=== PATIENT | female | born 1995 | race Two or more races ===

== ENCOUNTER 2021-05-23 13:16 | Outpatient (CLI) | payer OTHER | END 2021-05-23 14:38 | disposition home or self-care (01) | LOC: PRENATAL 13:16 | PROVIDERS: ATTEND Obstetrics & Gynecology Maternal & Fetal Medicine | DX: O36.80X0 Pregnancy with inconclusive fetal viability, not applicable or unspecified (principal); Z36.82 Encounter for antenatal screening for nuchal translucency; O99.210 Obesity complicating pregnancy, unspecified trimester; Z3A.12 12 weeks gestation of pregnancy ==

== ENCOUNTER 2021-07-24 12:54 | Outpatient (CLI) | payer OTHER | END 2021-07-24 14:37 | disposition home or self-care (01) | LOC: PRENATAL 12:54 | PROVIDERS: ATTEND Obstetrics & Gynecology Maternal & Fetal Medicine | DX: O35.3XX0 Maternal care for (suspected) damage to fetus from viral disease in mother, not applicable or unspecified (principal); O99.210 Obesity complicating pregnancy, unspecified trimester; Z3A.21 21 weeks gestation of pregnancy ==

== ENCOUNTER 2021-09-11 10:49 | Outpatient (CLI) | payer OTHER | END 2021-09-11 11:55 | disposition home or self-care (01) | LOC: PRENATAL 10:49 | PROVIDERS: ATTEND Obstetrics & Gynecology Maternal & Fetal Medicine | DX: O26.849 Uterine size-date discrepancy, unspecified trimester (principal); O99.210 Obesity complicating pregnancy, unspecified trimester; Z3A.28 28 weeks gestation of pregnancy ==

== ENCOUNTER 2021-10-16 18:02 | Outpatient (CLI) | payer OTHER ==
[2021-10-16] MEDS ORDERED: CHILDREN'S ASPI81 MG PO (20:58)
[2021-10-16] MEDS ORDERED: PRENATAL TABLE1 EAC3 PO (20:58)
[2021-10-16] MEDS ORDERED: IRON236 MG (20:59)
== END 2021-10-17 21:52 | disposition home or self-care (01) ==
LOC: OBS/DEL 18:02
PROVIDERS: ATTEND Student in an Organized Health Care Education/Training Program
DX: O13.3 Gestational [pregnancy-induced] hypertension without significant proteinuria, third trimester (principal); Z3A.33 33 weeks gestation of pregnancy

== ENCOUNTER 2021-11-06 14:11 | Inpatient (IN) | payer OTHER ==
[~2021-11-06] VITALS: Ht 167.6 cm; Wt 112.5 kg
[~2021-11-06 14:11] MED LIST: CHILDREN'S ASPI81 MG PO; IRON236 MG; PRENATAL TABLE1 EAC3 PO
== END 2021-11-08 17:52 | DRG 833 ==
LOC: LDR 14:11
PROVIDERS: ADMIT Obstetrics & Gynecology; ATTEND Obstetrics & Gynecology
PROC: 4A1HXCZ Monitoring of Products of Conception, Cardiac Rate, External Approach (ICD-10-PCS; principal; 2021-11-06)
DX: O13.3 Gestational [pregnancy-induced] hypertension without significant proteinuria, third trimester (principal); Z3A.36 36 weeks gestation of pregnancy; Z20.822 Contact with and (suspected) exposure to COVID-19

== ENCOUNTER 2021-11-11 14:04 | Inpatient (IN) | payer OTHER ==
[~2021-11-11] VITALS: Ht 167.6 cm; Wt 2.3 kg
[2021-11-16] MEDS ORDERED: ADALAT CC30 MG PO (10:43)
[2021-11-16] MEDS ORDERED: IBU800 MG PO (10:44)
[2021-11-16] MEDS ORDERED: SURFAK240 M1 PO (10:44)
== END 2021-11-16 16:07 | disposition home or self-care (01) | DRG 788 ==
LOC: OB/GYN 14:04 → LDR 14:04 → OB/GYN 11-12 08:47
PROVIDERS: ADMIT Obstetrics & Gynecology; ATTEND Obstetrics & Gynecology
PROC: 3E0P7VZ Introduction of Hormone into Female Reproductive, Via Natural or Artificial Opening (ICD-10-PCS; 2021-11-11)
PROC: 4A1HXCZ Monitoring of Products of Conception, Cardiac Rate, External Approach (ICD-10-PCS; 2021-11-11)
PROC: 3E033VJ Introduction of Other Hormone into Peripheral Vein, Percutaneous Approach (ICD-10-PCS; 2021-11-12)
PROC: 10D00Z1 Extraction of Products of Conception, Low, Open Approach (ICD-10-PCS; principal; 2021-11-12 07:00)
DX: O61.0 Failed medical induction of labor (principal); O14.14 Severe pre-eclampsia complicating childbirth; O13.4 Gestational [pregnancy-induced] hypertension without significant proteinuria, complicating childbirth; Z3A.37 37 weeks gestation of pregnancy; Z37.0 Single live birth; Z20.822 Contact with and (suspected) exposure to COVID-19